=== PATIENT | female | born 1995 | race Asian ===

== ENCOUNTER 2021-03-04 00:25 | Day surgery (SDC) | payer OTHER, SELFPAY ==
[2021-02-25 15:19] VITALS: BMI 23.6
[2021-03-04] VITALS (10 sets, daily range): BP systolic 108–126; BP diastolic 66–85; PULSE 69–102; RESP 12–16; TEMP 36.2–36.7; O2SAT 99–100
--- NOTE | 2021-03-04 06:39 | WPDANESEPPF ---
Anes - Initial Pre Proc Eval Procedure: Operation Date: 03/04/21 07:30 Proposed Procedures p Bilateral Breast Augmentation Mammoplasty - Abdulaziz Mello MD Date/Time: 03/04/21 06:39 Surgeon: Abdulaziz Mello MD Pre Op Diagnosis: micromastia Patient Data Age: 26 Gender: F Height: 1.52 m Weight: 49 kg Allergies Allergy/AdvReac Type Severity Reaction Status Date / Time No Known Allergies Allergy Verified 03/04/21 06:22 Home Medications Medication Instructions Recorded Confirmed Type drospirenone-ethinyl estradiol 28 mg PO DAILY 01/09/21 03/04/21 History [Elizabeth (26)] docusate sodium 100 mg capsule 100 mg PO DAILY #14 cap 02/20/21 03/04/21 Rx ondansetron HCl 4 mg tablet 4 mg PO Q8H #21 tablet 02/20/21 03/04/21 Rx carisoprodol 350 mg tablet 350 mg PO TID PRN #21 tablet 02/24/21 03/04/21 Rx oxycodone-acetaminophen 5 mg-325 1 tablet PO Q6H PRN #15 tablet 02/24/21 03/04/21 Rx mg tablet Patient hx anesthesia problems: none Family hx anesthesia problems: none PMFSH Surgical History Surgical History Hx of LASIK Social History Social History Smoking status: Never smoker Alcohol intake: never Substance use: never Living arrangements: with family Gender identity (if verbalized by the patient): Female Sexual Orientation (if Verbalized by the Patient): Straight or Heterosexual Spiritual care concerns: No Anes - Eval Final PreProcedure Day of Procedure 03/04/21 06:39 Patient weight: normal Heart: regular rate and rhythm Lungs: clear to auscultation Airway: Mallampati scale class 1 Neurological: alert and oriented Last oral intake: >/= 8 hours ASA classification: I Emergent: no Anesthetic plan: proceed Anesthesia type and monitoring: general LMA and standard monitoring Informed Consent: The patient's anesthetic plan and its attendant risks and benefits were discussed with the patient/family/POA. Questions were solicited and answers provided to the satisfaction of the patient/family/POA.
--- NOTE | 2021-03-04 06:53 | WPDHPUPDATE1 ---
History and Physical Update Update Date/Time: 03/04/21 06:53 History and Physical has been reviewed, including an updated exam of the patient. There are NO changes in the patient's condition. Risks, benefits, and alternatives have been discussed and questions answered. Patient agrees to proceed with procedure.
[2021-03-04] MEDS: LACTATED RINGERS 1,000 ML 30 ML IV CONT ×2 (07:04→08:32)
--- NOTE | 2021-03-04 07:04 | W.PM.PROC2 ---
Procedure Note - Detailed Date of Procedure 03/04/21 Pre-op Diagnosis micromastia Post-op Diagnosis same Procedure Performed Bilateral Augmentation Mammaplasty Surgeon Abdulaziz Mello MD Anesthesia general Findings Bilateral Augmentation Mammaplasty 375cc Right - Dual Plane 3. REF# SCX-375 SN [id number] Left - Dual Plane 2. REF# SCX-375 SN [id number] Description of Procedure She is here today for bilateral breast augmentation. Previously and again today the risks, benefits, alternatives were discussed in extensive detail. I wanted her to be very realistic about the risks involved as well as expectations. We discussed aftercare and what to monitor for. Made sure answered all of her questions to her satisfaction today and consent was obtained. Marked in the preoperative holding area with their verification. The patient was taken to the operating room placed supine on the operating table. Anesthesia was provided by anesthesiology. A surgical time-out was taken. We cleansed the skin and 1% lidocaine and 0.25% Marcaine with epinephrine was used anesthetize as a field block. She was prepped and draped in a standard sterile fashion. Tegaderm nipple Varghese were placed. A 15 blade used to make an incision along the inframammary fold. Dissection was continued at 45 degree angle until the chest wall as identified. I elevated above the pectoralis major muscle in a dual plane manner as outlined above. I then incised the pectoralis major along its inferior border and completely released the inferior border leaving the medial border intact. I created a subpectoral pocket in the appropriate dimensions based on our preoperative planning for the implant. I then copiously irrigated with saline solution and verified a strict hemostasis. Next the use a triple antibiotic and Betadine containing solution to irrigate the pocket. I washed my gloves with the triple antibiotic and Betadine solution. We washed the implant immediately upon opening it with this solution and only opened it when we needed it. I used implant funnel and no-touch technique. The implant was introduced into the pocket using the funnel. Having verified positioning of the implant this was closed using 2-0 Vicryl followed by 3-0 Monocryl in a running subcuticular 4-0 Monocryl followed by tissue glue. Fluffs, Ruben wrap, and surgical bra were placed. Patient was awoke and taken to PACU without difficulty. All instrument sponge counts were correct at the end of the case. Estimated Blood Loss 10 Drains No Packing No Pathology none sent Complications No immediate complications Condition stable Disposition PACU
[2021-03-04] MEDS: TRANEXAMIC ACID 1,000MG/ISO100 1,000 MG/100 ML BAG 200 MG IVPB (07:26)
[2021-03-04] MEDS: LIDO 1%/EPINEPHRINE/PF 1:200,000 30 ML VIAL XX (07:38)
[2021-03-04] MEDS: ceFAZolin 2 GM/D5W 50 ML 2 GM/50 ML BAG IVPB (07:38)
--- NOTE | 2021-03-04 08:15 | SUR.OPER ---
bilateral breast implants SCX [facility]RELLE INSPIRA COHESIVE BREAST IMPLANTS LEFT SCX 375 EXP 2022-05-22, RIGHT SCX 375 EXP 2024-06-09 LEFT SN [id number], RIGHT SN [id number]. ,
[2021-03-04] MEDS: fentaNYL CITRATE INJ (*CRX) 100 MCG/2 ML VIAL 25 MCG IV PUSH ×2 (09:09→09:12)
[2021-03-04] MEDS: oxyCODONE HCL (*CRX) 5 MG TAB IR PO (10:02)
== END 2021-03-04 10:35 | disposition home or self-care (01) ==
PROVIDERS: Visit Provider Surgery Plastic and Reconstructive Surgery
PROC: (CPT 19325; principal; 2021-03-04 07:30)
DX: Z41.1 Encounter for cosmetic surgery (principal); N64.82 Hypoplasia of breast
CPT/HCPCS: 19325; A9270; J0690; J1100; J1580; J2250; J2405; J2704; J3010; J7120